=== PATIENT | female | born 1975 | race Caucasian/White ===

== ENCOUNTER 2020-10-11 20:00 | Emergency (ER) | payer SELFPAY ==
[~2020-10-11] VITALS: Ht 162.6 cm; Wt 81.6 kg
[2020-10-11 20:11] VITALS: Ht 162.6 cm; Wt 81.6 kg
[2020-10-11 22:11] VITALS: BP 121/90
== END 2020-10-11 22:11 | disposition home or self-care (01) ==
LOC: ED 20:00
DX: K21.9 Gastro-esophageal reflux disease without esophagitis (principal); M54.6 Pain in thoracic spine; R51.9 Headache, unspecified
CPT/HCPCS: Q0162